=== PATIENT | male | born 1965 | race Two or more races ===

== ENCOUNTER 2025-06-13 05:40 | Emergency (ER) | payer BC ==
[~2025-06-13] VITALS: Ht 162.6 cm; Wt 75.3 kg
[2025-06-13] MEDS ORDERED: FAMOTIDINE/PF 20 MG/2 ML VIAL IV STA (06:19)
[2025-06-13] MEDS ORDERED: CEFTRIAXONE SODIUM 1,000 MG VIAL IV STA (06:20)
[2025-06-13] MEDS ORDERED: KETOROLAC TROMETHAMINE 15 MG VIAL IM STA (06:20)
[2025-06-13] MEDS ORDERED: ORPHENADRINE CITRATE 30 MG/ML AMPUL IM STA (06:20)
[2025-06-13 07:38] LABS: BASO % 0.7 % (0.1-1.2); EOS # 0.36 (0.04-0.54); EOS % 3.8 % (0.7-7.0); LYMPH # 4.14 (1.18-3.74); LYMPH % 43.3 % (19.3-53.1); MEAN PLATELET VOLUME 11.40 fl (9.4-12.4); MONO # 1.06 (0.24-0.82); MONO % 11.1 % (4.7-12.5); NEUT # 3.89 (1.56-6.13); NEUT % 40.7 % (34.0-71.1); RED CELL DISTRIBUTION WIDTH 12.1 % (11.6-14.4)
[2025-06-13 08:02] LABS: ALT/SGPT 45.0 U/L (12-78); AST/SGOT 20.0 U/L (15-37); BILIRUBIN TOTAL 0.41 mg/dL (0.3-1.2); BUN CREA RATIO 16.0 (7.0-25.0); CREATININE SERUM 1.33 mg/dL (0.70-1.30); GFR 55.42; GLOBULINA 3.8 G/DL (2.4-3.5); OSMOLALITY SERUM 300.0 MOSM/KG (275-295); TSH 2.17 uIU/mL (0.358-3.74)
[2025-06-13 08:07] LABS: COVID-19 AG NEGATIVE (NEGATIVE)
[2025-06-13 08:50] LABS: GLUCOSE FASTING 449.0 mg/dL (65-100)
[2025-06-13] MEDS ORDERED: INSULIN REGULAR, HUMAN 1,000 UNIT/10 ML UNITS IV ONE (09:15)
[2025-06-13] MEDS ORDERED: 0.9 % SODIUM CHLORIDE 1,000 ML IV SCH (10:00)
== END 2025-06-13 10:28 | disposition home or self-care (01) ==
LOC: ER 05:40
PROVIDERS: General Practice
DX: J02.8 Acute pharyngitis due to other specified organisms (principal); M19.90 Unspecified osteoarthritis, unspecified site; E11.65 Type 2 diabetes mellitus with hyperglycemia; I10 Essential (primary) hypertension; G62.9 Polyneuropathy, unspecified; J06.9 Acute upper respiratory infection, unspecified; R07.9 Chest pain, unspecified; Z20.822 Contact with and (suspected) exposure to COVID-19